=== PATIENT | male | born 1995 ===

== ENCOUNTER 2020-12-06 11:43 | Emergency (ER) | payer OTHER ==
[~2020-12-06] VITALS: Ht 172.7 cm; Wt 74.8 kg
== END 2020-12-06 15:55 | disposition home or self-care (01) ==
LOC: ER 11:43
DX: S09.90XA Unspecified injury of head, initial encounter (principal); S01.21XA Laceration without foreign body of nose, initial encounter; M79.605 Pain in left leg; V58.6XXA Passenger in pick-up truck or van injured in noncollision transport accident in traffic accident, initial encounter; Y92.488 Other paved roadways as the place of occurrence of the external cause
CPT/HCPCS: 70450; 71045; 72125; 73590; 96374; 99285-25; A9270; J3010